=== PATIENT | female | born 1940 | race Caucasian/White ===

== ENCOUNTER 2023-01-29 22:27 | Inpatient (IN) | payer MEDICARE, OTHER ==
[~2023-01-29] VITALS: Ht 154.9 cm; Wt 60.8 kg
[~2023-01-29 22:27] MED LIST: BUSP5TAB PO; CLON1TAB12 PO; CLON2TAB PO; LEVO100T9 PO; ROSU20TA2 PO; SERT50TA12 PO; TRAZ-257 PO
[2023-01-29 23:10] VITALS: BP 131/58; TEMP 98.1; O2SAT 95
[2023-01-29] MEDS ORDERED: MAG HYDROX/AL HYDROX/SIMETH 30 ML UDC PO PRN (23:30)
[2023-01-29] MEDS ORDERED: BLOOD SUGAR DIAGNOSTIC 1 EACH STRIP IN ONE (23:30)
[2023-01-29] MEDS ORDERED: ACETAMINOPHEN 325 MG TABLET PO PRN (23:30)
[2023-01-30] MEDS: LORAZEPAM 0.5 MG TABLET PO PRN ×2 (00:17→14:47)
[2023-01-30 07:57] LABS: SODIUM SERUM 137 mmol/L (136-145)
[2023-01-30 07:58] LABS: ALANINE AMINOTRANSFERASE 42 U/L (12-78); ALBUMIN 2.7 g/dL (3.4-5.0); ALKALINE PHOSPHATASE 106 U/L (46-116); ASPARTATE AMINOTRANSFERASE 44 U/L (15-37); BILIRUBIN,TOTAL 0.3 mg/dL (0.2-1.0); CALCIUM, SERUM 9.5 mg/dL (8.5-10.1); CARBON DIOXIDE 25 mmol/L (21-32); CHLORIDE 104 mmol/L (98-107); CREATININE 0.7 mg/dL (0.6-1.3); GLUCOSE 99 mg/dL (74-106); POTASSIUM 3.6 mmol/L (3.5-5.1); TOTAL PROTEIN, SERUM 6.9 g/dL (6.4-8.2); UREA NITROGEN, BLOOD 11 mg/dL (7-18)
[2023-01-30 08:00] VITALS: BP 126/68; TEMP 98.3; O2SAT 95
[2023-01-30] MEDS ORDERED: TRAZ-182 PO (08:00)
[2023-01-30] MEDS ORDERED: ATOR10TA PO (08:00)
[2023-01-30] MEDS ORDERED: DIVA125T32 PO (08:00)
[2023-01-30] MEDS ORDERED: LORA-259 PO (08:00)
[2023-01-30] MEDS ORDERED: ACET-868 PO (08:00)
[2023-01-30] MEDS ORDERED: HALO2TAB PO (08:00)
[2023-01-30] MEDS ORDERED: MONT10TA22 PO (08:00)
[2023-01-30 08:02] LABS: CHOLESTEROL 243 mg/dL (<200); HDL CHOLESTEROL 56 mg/dL (40-60); LDL 144 mg/dL (0-99); TRIGLYCERIDES 239 mg/dL (30-150)
[2023-01-30] MEDS ORDERED: PAROXETINE HCL 10 MG TABLET PO SCH (09:30)
[2023-01-30] MEDS: QUETIAPINE FUMARATE 25 MG TABLET PO SCH (10:22)
[2023-01-30] MEDS: PAROXETINE HCL 20 MG TABLET PO SCH (10:23)
[2023-01-30 16:00] VITALS: BP 124/70; TEMP 99; O2SAT 96
[2023-01-30 20:00] VITALS: BP 136/80; TEMP 98.8; O2SAT 95
[2023-01-30] MEDS: DIVALPROEX SODIUM 125 MG CAP.SPRINK PO SCH (21:11)
[2023-01-30] MEDS: QUETIAPINE FUMARATE 100 MG TABLET PO SCH (21:33)
[2023-01-31] MEDS: LORAZEPAM 0.5 MG TABLET PO PRN ×2 (06:16→12:30)
[2023-01-31] MEDS: LEVOTHYROXINE SODIUM 100 MCG TABLET PO SCH (07:48)
[2023-01-31 08:00] VITALS: BP 122/76; TEMP 98.8; O2SAT 93
[2023-01-31] MEDS: DIVALPROEX SODIUM 125 MG CAP.SPRINK PO SCH ×2 (08:35→20:40)
[2023-01-31] MEDS: QUETIAPINE FUMARATE 25 MG TABLET PO SCH ×2 (08:35→16:33)
[2023-01-31] MEDS: ATORVASTATIN 10 MG TABLET PO SCH (08:35)
[2023-01-31] MEDS: PAROXETINE HCL 20 MG TABLET PO SCH (08:35)
[2023-01-31] MEDS: MONTELUKAST SODIUM (10MG) 10 MG TABLET PO SCH (08:35)
[2023-01-31] MEDS: MAGNESIUM HYDROXIDE 30 ML UDC PO PRN ×2 (08:56→21:34)
[2023-01-31 16:00] VITALS: BP 129/71; TEMP 97.3; O2SAT 94
[2023-01-31 20:00] VITALS: BP 117/60; TEMP 98.3; O2SAT 97
[2023-01-31] MEDS: QUETIAPINE FUMARATE 100 MG TABLET PO SCH (21:34)
[2023-01-31] MEDS: ZOLPIDEM TARTRATE 5 MG TABLET PO PRN (21:40)
[2023-02-01 08:00] VITALS: BP 134/71; TEMP 98.6; O2SAT 94
[2023-02-01] MEDS: LORAZEPAM 0.5 MG TABLET PO PRN ×2 (08:10→14:09)
[2023-02-01] MEDS: QUETIAPINE FUMARATE 25 MG TABLET PO SCH ×2 (08:11→17:56)
[2023-02-01] MEDS: MONTELUKAST SODIUM (10MG) 10 MG TABLET PO SCH (08:11)
[2023-02-01] MEDS: ATORVASTATIN 10 MG TABLET PO SCH (08:11)
[2023-02-01] MEDS: LEVOTHYROXINE SODIUM 100 MCG TABLET PO SCH (08:11)
[2023-02-01] MEDS: DIVALPROEX SODIUM 125 MG CAP.SPRINK PO SCH ×2 (08:11→20:46)
[2023-02-01] MEDS: PAROXETINE HCL 20 MG TABLET PO SCH (08:11)
[2023-02-01] MEDS ORDERED: LACTULOSE 10 G/15 ML UDC (PYXIS) PO PRN (09:30)
[2023-02-01] MEDS ORDERED: NA PHOS,M-B/NA PHOS,DI-BA 1 EA ENEMA RC PRN (12:00)
[2023-02-01] MEDS ORDERED: PHENYLEPHRINE/SHK LV/MO/PET,WH 30 GM TUBE RC PRN (12:00)
[2023-02-01 16:00] VITALS: BP 134/85; TEMP 98; O2SAT 94
[2023-02-01] MEDS: DOCUSATE SODIUM 100 MG CAPSULE PO SCH (17:56)
[2023-02-01 20:00] VITALS: BP 120/69; TEMP 98.1; O2SAT 100
[2023-02-01] MEDS: QUETIAPINE FUMARATE 100 MG TABLET PO SCH (21:17)
[2023-02-02] MEDS: LORAZEPAM 0.5 MG TABLET PO PRN ×2 (05:29→15:28)
[2023-02-02 08:00] VITALS: BP 119/66; TEMP 98.9; O2SAT 96
[2023-02-02 08:01] LABS: BASOPHILS # (AUTO) 0.1 K/uL (0.0-0.2); EOSINOPHILS # (AUTO) 0.2 K/uL (0.0-0.7); EOSINOPHILS % (AUTO) 1.7 % (0.0-6.0); HEMATOCRIT 36 % (33-45); HEMOGLOBIN 11.9 g/dL (11.5-14.8); LYMPHOCYTES # (AUTO) 2.3 K/uL (0.8-4.8); LYMPHOCYTES % (AUTO) 24.9 % (20.0-44.0); MEAN CORPUSCULAR HEMOGLOBIN 29 PG (26.0-33.0); MEAN CORPUSCULAR HGB CONC 33 g/dl (31.0-36.0); MEAN CORPUSCULAR VOLUME 89 fL (82-100); MONOCYTES # (AUTO) 0.9 K/uL (0.1-1.30); MONOCYTES % (AUTO) 9.6 % (2.0-12.0); NEUTROPHILS # (AUTO) 5.7 K/uL (1.8-8.9); NEUTROPHILS % (AUTO) 62.8 % (43.0-81.0); PLATELET COUNT (AUTO) 379 K/uL (150-450); RED BLOOD CELL COUNT(AUTO) 4.09 MIL/uL (4.0-5.2); RED CELL DISTRIBUTION WIDTH 14.5 % (11.5-15.0); WHITE BLOOD COUNT (AUTO) 9.1 K/uL (4.3-11.0)
[2023-02-02] MEDS: LEVOTHYROXINE SODIUM 100 MCG TABLET PO SCH (08:23)
[2023-02-02 08:25] LABS: CREATININE 0.8 mg/dL (0.6-1.3); MAGNESIUM 2.6 mg/dL (1.8-2.4); PHOSPHORUS 3.6 mg/dL (2.5-4.9)
[2023-02-02] MEDS: DOCUSATE SODIUM 100 MG CAPSULE PO SCH ×2 (09:02→16:31)
[2023-02-02] MEDS: MONTELUKAST SODIUM (10MG) 10 MG TABLET PO SCH (09:02)
[2023-02-02] MEDS: ATORVASTATIN 10 MG TABLET PO SCH (09:02)
[2023-02-02] MEDS: QUETIAPINE FUMARATE 25 MG TABLET PO SCH ×2 (09:02→16:31)
[2023-02-02] MEDS: PAROXETINE HCL 20 MG TABLET PO SCH (09:02)
[2023-02-02] MEDS: DIVALPROEX SODIUM 125 MG CAP.SPRINK PO SCH ×2 (09:02→20:25)
[2023-02-02 16:00] VITALS: BP 133/64; TEMP 98; O2SAT 98
[2023-02-02 20:00] VITALS: BP 124/71; TEMP 98.5; O2SAT 98
[2023-02-02] MEDS: QUETIAPINE FUMARATE 100 MG TABLET PO SCH (21:04)
[2023-02-03] MEDS: LORAZEPAM 0.5 MG TABLET PO PRN ×2 (07:29→15:42)
[2023-02-03] MEDS: LEVOTHYROXINE SODIUM 100 MCG TABLET PO SCH (07:30)
[2023-02-03 08:00] VITALS: BP 140/68; TEMP 97.8; O2SAT 95
[2023-02-03] MEDS: PAROXETINE HCL 20 MG TABLET PO SCH (08:30)
[2023-02-03] MEDS: MONTELUKAST SODIUM (10MG) 10 MG TABLET PO SCH (08:30)
[2023-02-03] MEDS: ATORVASTATIN 10 MG TABLET PO SCH (08:30)
[2023-02-03] MEDS: QUETIAPINE FUMARATE 25 MG TABLET PO SCH ×2 (08:30→16:58)
[2023-02-03] MEDS: DOCUSATE SODIUM 100 MG CAPSULE PO SCH ×2 (08:30→16:58)
[2023-02-03] MEDS: DIVALPROEX SODIUM 125 MG CAP.SPRINK PO SCH ×2 (08:31→20:43)
[2023-02-03 16:00] VITALS: BP 122/63; TEMP 98.6; O2SAT 97
[2023-02-03 20:38] VITALS: BP 129/65; TEMP 98; O2SAT 96
[2023-02-03] MEDS: QUETIAPINE FUMARATE 100 MG TABLET PO SCH (21:47)
[2023-02-04] MEDS: LORAZEPAM 0.5 MG TABLET PO PRN ×2 (00:47→14:11)
[2023-02-04] MEDS: LEVOTHYROXINE SODIUM 100 MCG TABLET PO SCH (07:59)
[2023-02-04 08:00] VITALS: BP 133/65; TEMP 98.6; O2SAT 98
[2023-02-04] MEDS: MONTELUKAST SODIUM (10MG) 10 MG TABLET PO SCH (08:00)
[2023-02-04] MEDS: DOCUSATE SODIUM 100 MG CAPSULE PO SCH ×2 (08:00→17:03)
[2023-02-04] MEDS: QUETIAPINE FUMARATE 25 MG TABLET PO SCH ×2 (08:00→17:03)
[2023-02-04] MEDS: PAROXETINE HCL 20 MG TABLET PO SCH (08:00)
[2023-02-04] MEDS: DIVALPROEX SODIUM 125 MG CAP.SPRINK PO SCH ×2 (08:00→21:20)
[2023-02-04] MEDS: ATORVASTATIN 10 MG TABLET PO SCH (08:00)
[2023-02-04] MEDS: ACETAMINOPHEN 325 MG TABLET PO PRN (14:11)
[2023-02-04 16:00] VITALS: BP 137/78; TEMP 98.7; O2SAT 99
[2023-02-04 20:23] VITALS: BP 124/70; TEMP 97.9; O2SAT 97
[2023-02-04 20:46] LABS: APPEARANCE,URINE CLEAR (CLEAR); BILIRUBIN,URINE NEGATIVE (NEGATIVE); BLOOD, URINE NEGATIVE Ery/uL (NEGATIVE); COLOR,URINE YELLOW (YELLOW); KETONES,URINE NEGATIVE (NEGATIVE); LEUKOCYTE ESTERASE ,URINE NEGATIVE (NEGATIVE); NITRITE, URINE NEGATIVE (NEGATIVE); PH,URINE 6.5 (5.0-8.0); PROTEIN,URINE NEGATIVE (NEGATIVE); UGLUCOSE NEGATIVE (NEGATIVE); UROBILINOGEN,URINE 0.2 EU/dL (0.2)
[2023-02-04] MEDS: QUETIAPINE FUMARATE 100 MG TABLET PO SCH (21:20)
[2023-02-04] MEDS: ZOLPIDEM TARTRATE 5 MG TABLET PO PRN (23:23)
[2023-02-05] MEDS: LORAZEPAM 0.5 MG TABLET PO PRN ×2 (05:46→14:26)
[2023-02-05 08:00] VITALS: BP 100/96; TEMP 97.5; O2SAT 96
[2023-02-05] MEDS: LEVOTHYROXINE SODIUM 100 MCG TABLET PO SCH (08:49)
[2023-02-05] MEDS: MONTELUKAST SODIUM (10MG) 10 MG TABLET PO SCH (08:49)
[2023-02-05] MEDS: DOCUSATE SODIUM 100 MG CAPSULE PO SCH ×2 (08:49→17:01)
[2023-02-05] MEDS: ATORVASTATIN 10 MG TABLET PO SCH (08:49)
[2023-02-05] MEDS: QUETIAPINE FUMARATE 25 MG TABLET PO SCH ×3 (08:49→17:01)
[2023-02-05] MEDS: DIVALPROEX SODIUM 125 MG CAP.SPRINK PO SCH ×2 (08:49→20:38)
[2023-02-05] MEDS: PAROXETINE HCL 20 MG TABLET PO SCH (08:49)
[2023-02-05 16:00] VITALS: BP 106/50; TEMP 98.3; O2SAT 96
[2023-02-05 20:27] VITALS: BP 119/67; TEMP 98.1; O2SAT 96
[2023-02-05] MEDS: QUETIAPINE FUMARATE 100 MG TABLET PO SCH (21:32)
[2023-02-06] MEDS: LORAZEPAM 0.5 MG TABLET PO PRN ×3 (01:25→15:12)
[2023-02-06 08:00] VITALS: BP 130/60; TEMP 98.6; O2SAT 96
[2023-02-06] MEDS: LEVOTHYROXINE SODIUM 100 MCG TABLET PO SCH (08:22)
[2023-02-06] MEDS: DIVALPROEX SODIUM 125 MG CAP.SPRINK PO SCH ×2 (08:37→20:53)
[2023-02-06] MEDS: PAROXETINE HCL 20 MG TABLET PO SCH (08:38)
[2023-02-06] MEDS: MONTELUKAST SODIUM (10MG) 10 MG TABLET PO SCH ×2 (08:38→09:00)
[2023-02-06] MEDS: QUETIAPINE FUMARATE 25 MG TABLET PO SCH ×3 (08:38→16:49)
[2023-02-06] MEDS: ATORVASTATIN 10 MG TABLET PO SCH (08:38)
[2023-02-06] MEDS: ACETAMINOPHEN 325 MG TABLET PO PRN (08:38)
[2023-02-06] MEDS: DOCUSATE SODIUM 100 MG CAPSULE PO SCH ×2 (08:38→16:49)
[2023-02-06] MEDS: MAGNESIUM HYDROXIDE 30 ML UDC PO PRN (13:02)
[2023-02-06 16:00] VITALS: BP 128/77; TEMP 98.4; O2SAT 95
[2023-02-06 20:10] VITALS: BP 107/59; TEMP 98.3; O2SAT 95
[2023-02-06] MEDS: QUETIAPINE FUMARATE 100 MG TABLET PO SCH (21:32)
[2023-02-07] MEDS: LORAZEPAM 0.5 MG TABLET PO PRN ×3 (01:34→17:30)
[2023-02-07 08:00] VITALS: BP 126/72; TEMP 97.6; O2SAT 97
[2023-02-07] MEDS: LEVOTHYROXINE SODIUM 100 MCG TABLET PO SCH (08:04)
[2023-02-07] MEDS: QUETIAPINE FUMARATE 25 MG TABLET PO SCH ×2 (08:48→16:14)
[2023-02-07] MEDS: MONTELUKAST SODIUM (10MG) 10 MG TABLET PO SCH (08:48)
[2023-02-07] MEDS: DIVALPROEX SODIUM 125 MG CAP.SPRINK PO SCH ×2 (08:48→20:52)
[2023-02-07] MEDS: ATORVASTATIN 10 MG TABLET PO SCH (08:48)
[2023-02-07] MEDS: DOCUSATE SODIUM 100 MG CAPSULE PO SCH ×2 (08:48→16:14)
[2023-02-07] MEDS: PAROXETINE HCL 20 MG TABLET PO SCH (08:48)
[2023-02-07 16:00] VITALS: BP 117/62; TEMP 98; O2SAT 96
[2023-02-07 20:00] VITALS: BP 108/61; TEMP 98.4; O2SAT 96
[2023-02-07] MEDS: QUETIAPINE FUMARATE 100 MG TABLET PO SCH (21:14)
[2023-02-08 07:33] LABS: CALCIUM, SERUM 9.3 mg/dL (8.5-10.1); CARBON DIOXIDE 25 mmol/L (21-32); CHLORIDE 102 mmol/L (98-107); CREATININE 0.7 mg/dL (0.6-1.3); GLUCOSE 102 mg/dL (74-106); MAGNESIUM 2.2 mg/dL (1.8-2.4); SODIUM SERUM 136 mmol/L (136-145); UREA NITROGEN, BLOOD 12 mg/dL (7-18)
[2023-02-08 08:00] VITALS: BP 146/61; TEMP 97.7; O2SAT 93
[2023-02-08] MEDS: ATORVASTATIN 10 MG TABLET PO SCH (08:34)
[2023-02-08] MEDS: DIVALPROEX SODIUM 125 MG CAP.SPRINK PO SCH ×2 (08:34→20:47)
[2023-02-08] MEDS: DOCUSATE SODIUM 100 MG CAPSULE PO SCH ×2 (08:34→16:46)
[2023-02-08] MEDS: PAROXETINE HCL 20 MG TABLET PO SCH (08:34)
[2023-02-08] MEDS: LEVOTHYROXINE SODIUM 100 MCG TABLET PO SCH (08:35)
[2023-02-08] MEDS: QUETIAPINE FUMARATE 25 MG TABLET PO SCH ×2 (08:35→16:46)
[2023-02-08] MEDS: MONTELUKAST SODIUM (10MG) 10 MG TABLET PO SCH (08:35)
[2023-02-08 16:00] VITALS: BP 121/65; TEMP 98.6; O2SAT 99
[2023-02-08 20:54] VITALS: BP 134/64; TEMP 98.2; O2SAT 96
[2023-02-08] MEDS: QUETIAPINE FUMARATE 100 MG TABLET PO SCH (21:03)
[2023-02-09] MEDS: LORAZEPAM 0.5 MG TABLET PO PRN ×2 (03:32→15:42)
[2023-02-09] MEDS: LEVOTHYROXINE SODIUM 100 MCG TABLET PO SCH (07:52)
[2023-02-09] MEDS: PAROXETINE HCL 20 MG TABLET PO SCH (07:53)
[2023-02-09] MEDS: DIVALPROEX SODIUM 125 MG CAP.SPRINK PO SCH ×2 (07:53→21:13)
[2023-02-09] MEDS: MONTELUKAST SODIUM (10MG) 10 MG TABLET PO SCH (07:53)
[2023-02-09] MEDS: DOCUSATE SODIUM 100 MG CAPSULE PO SCH ×2 (07:53→16:55)
[2023-02-09] MEDS: QUETIAPINE FUMARATE 25 MG TABLET PO SCH ×2 (07:53→16:55)
[2023-02-09] MEDS: ATORVASTATIN 10 MG TABLET PO SCH (07:54)
[2023-02-09 08:00] VITALS: BP 116/65; TEMP 97.6; O2SAT 96
[2023-02-09 16:00] VITALS: BP 103/66; TEMP 97.8; O2SAT 99
[2023-02-09] MEDS: QUETIAPINE FUMARATE 100 MG TABLET PO SCH (21:13)
[2023-02-10] MEDS: LORAZEPAM 0.5 MG TABLET PO PRN ×3 (02:24→23:16)
[2023-02-10 08:12] VITALS: BP 108/60; TEMP 96.9; O2SAT 95
[2023-02-10] MEDS: PAROXETINE HCL 20 MG TABLET PO SCH (08:37)
[2023-02-10] MEDS: DOCUSATE SODIUM 100 MG CAPSULE PO SCH ×2 (08:37→17:20)
[2023-02-10] MEDS: LEVOTHYROXINE SODIUM 100 MCG TABLET PO SCH (08:37)
[2023-02-10] MEDS: MONTELUKAST SODIUM (10MG) 10 MG TABLET PO SCH (08:37)
[2023-02-10] MEDS: DIVALPROEX SODIUM 125 MG CAP.SPRINK PO SCH ×2 (08:37→21:16)
[2023-02-10] MEDS: QUETIAPINE FUMARATE 25 MG TABLET PO SCH ×2 (08:37→17:20)
[2023-02-10] MEDS: ATORVASTATIN 10 MG TABLET PO SCH (08:38)
[2023-02-10 16:02] VITALS: BP 110/65; TEMP 97.7; O2SAT 97
[2023-02-10 20:22] VITALS: BP 113/51; TEMP 98.2; O2SAT 99
[2023-02-10] MEDS: QUETIAPINE FUMARATE 100 MG TABLET PO SCH (21:15)
[2023-02-11 08:00] VITALS: BP 115/85; TEMP 97.8; O2SAT 95
[2023-02-11] MEDS: LORAZEPAM 0.5 MG TABLET PO PRN ×2 (08:09→14:20)
[2023-02-11] MEDS: LEVOTHYROXINE SODIUM 100 MCG TABLET PO SCH (08:09)
[2023-02-11] MEDS: MONTELUKAST SODIUM (10MG) 10 MG TABLET PO SCH (08:36)
[2023-02-11] MEDS: ATORVASTATIN 10 MG TABLET PO SCH ×2 (08:36→09:00)
[2023-02-11] MEDS: DOCUSATE SODIUM 100 MG CAPSULE PO SCH ×2 (08:36→16:08)
[2023-02-11] MEDS: QUETIAPINE FUMARATE 25 MG TABLET PO SCH ×2 (08:36→16:08)
[2023-02-11] MEDS: DIVALPROEX SODIUM 125 MG CAP.SPRINK PO SCH ×2 (08:36→20:27)
[2023-02-11] MEDS: PAROXETINE HCL 20 MG TABLET PO SCH (08:36)
[2023-02-11] MEDS: ACETAMINOPHEN 325 MG TABLET PO PRN ×2 (14:07→21:09)
[2023-02-11 16:00] VITALS: BP 115/56; TEMP 97.7; O2SAT 95
[2023-02-11 20:21] VITALS: BP 115/61; TEMP 99; O2SAT 96
[2023-02-11] MEDS: QUETIAPINE FUMARATE 100 MG TABLET PO SCH (21:05)
[2023-02-12] MEDS: LORAZEPAM 0.5 MG TABLET PO PRN (01:35)
[2023-02-12] MEDS: LEVOTHYROXINE SODIUM 100 MCG TABLET PO SCH (07:52)
[2023-02-12 08:00] VITALS: BP 107/78; TEMP 97.9; O2SAT 98
[2023-02-12] MEDS: DIVALPROEX SODIUM 125 MG CAP.SPRINK PO SCH (08:00)
[2023-02-12] MEDS: MONTELUKAST SODIUM (10MG) 10 MG TABLET PO SCH (08:00)
[2023-02-12] MEDS: ATORVASTATIN 10 MG TABLET PO SCH (08:00)
[2023-02-12] MEDS: PAROXETINE HCL 20 MG TABLET PO SCH (08:00)
[2023-02-12] MEDS: QUETIAPINE FUMARATE 25 MG TABLET PO SCH (08:00)
[2023-02-12] MEDS: DOCUSATE SODIUM 100 MG CAPSULE PO SCH (08:00)
[2023-02-12] MEDS ORDERED: PHEN28OI9 RC (14:04)
[2023-02-12] MEDS ORDERED: MONT10TA22 PO (14:04)
[2023-02-12] MEDS ORDERED: ATOR10TA PO (14:04)
[2023-02-12] MEDS ORDERED: LEVO100T PO (14:04)
== END 2023-02-12 10:00 | DRG 885 ==
LOC: GPS 23:01
PROVIDERS: ADMIT Psychiatry & Neurology Psychiatry; ATTEND Student in an Organized Health Care Education/Training Program
DX: F31.64 Bipolar disorder, current episode mixed, severe, with psychotic features (principal); F41.1 Generalized anxiety disorder; K58.9 Irritable bowel syndrome, unspecified; E78.5 Hyperlipidemia, unspecified; Z66 Do not resuscitate; E03.9 Hypothyroidism, unspecified; H81.09 Meniere's disease, unspecified ear; G62.9 Polyneuropathy, unspecified; T42.4X2D Poisoning by benzodiazepines, intentional self-harm, subsequent encounter; Z79.890 Hormone replacement therapy; Z79.899 Other long term (current) drug therapy; Z87.440 Personal history of urinary (tract) infections
CPT/HCPCS: 36415; 71045-TC; 80048-TC; 80053-TC; 80061-TC; 80164-TC; 82962-TC; 83735-TC; 84100-TC; 84439-TC; 84443-TC; 85025-TC; 87081-TC; 87086-TC